=== PATIENT | female | born 1970 | race Caucasian/White ===

== ENCOUNTER 2017-06-18 05:38 | Inpatient (IN) | payer OTHER ==
[~2017-06-18] VITALS: Ht 165.1 cm; Wt 96.1 kg
[~2017-06-18 05:38] MED LIST: ADVAIR 250/501 DISK IH; ALBUTEROL SULF8.5 GM IH; AMBIEN10 M1 PO; AMBIEN10 MG PO; AMLODIPINE BESYL5 MG PO; CYMBALTA60 MG PO; DIAZEPAM10 MG PO; ENDOCET 5-3251 EACH PO; EPIPEN ADU0.3 MG/0.3 IM; HYDROMORPHONE HC2 MG PO; LEXAPRO10 MG PO; MOTRIN800 MG PO; MS CONTIN,ORAMO15 M1 PO; ONDANSETRON4 MG/2 ML PO; PARAFON FORTE500 MG PO; PERCOCET 5/31 TABLET PO; PERCOCET 7.5-31 EACH PO; PERCOCET 7.51 TABLET PO; PRILOSEC20 MG PO; PROAIR HFA8.5 GM IH; VENTOLIN HFA18 GM IH; VITAMIN B-122000 MC1 PO; VITAMIN B-12250 MCG PO; VITAMIN B-122500 MCG SL; VITAMIN D35000 UNIT PO; VITAMIN D5000 UNIT PO; WELLABUTRIN; ZANAFLEX4 MG PO; ZOFRAN4 MG PO
[2017-06-18 07:10] VITALS: BP 168/87
[2017-06-18 15:00] VITALS: BP 186/93
[2017-06-18 16:30] VITALS: BP 190/98
[2017-06-18 20:00] VITALS: BP 200/100
[2017-06-18 21:42] VITALS: BP 178/90
[2017-06-18 23:24] VITALS: BP 162/82
[2017-06-19 00:52] LABS: HEMATOCRIT 29.7 % (36.0-46.0); MCH 26.3 PG (29.0-34.0); MEAN PLAT.VOLUME 9.3 uM^3 (9.5-12.4); PLATELET COUNT 373 K/uL (156-360); RBC DIS.WIDTH-CV 15.3 % (11.8-14.6); RBC DIS.WIDTH-SD 46.7 % (39-53); WHITE BLOOD COUNT 17.6 K/uL (4.1-10.2)
[2017-06-19 01:02] LABS: MCV 84.9 FL (83-99)
[2017-06-19 01:19] LABS: TROP-I INTERPRETATION NEGATIVE; TROPONIN-I 0.03 ng/mL (0.0-0.30)
[2017-06-19 01:20] LABS: CHLORIDE 101 mEq/L (99-109); POTASSIUM 4.6 mEq/L (3.7-5.4); SODIUM 136 mEq/L (136-147)
[2017-06-19 01:21] LABS: MAGNESIUM 2.2 mg/dL (1.3-2.7)
[2017-06-19 01:22] LABS: GLUCOSE 139 mg/dL (70-99)
[2017-06-19 01:24] LABS: ANION GAP 13 MEQ/L (2-14)
[2017-06-19 01:26] LABS: GFR ESTIMATE (CALCULATED) 51 mL/min/
[2017-06-19 01:27] LABS: UREA NITROGEN (BUN) 10 mg/dL (9-23)
[2017-06-19 03:55] VITALS: BP 154/83
[2017-06-19 07:06] VITALS: BP 188/99
[2017-06-19 07:11] LABS: ANION GAP 12 MEQ/L (2-14); CHLORIDE 101 MEQ/L (99-109); GFR ESTIMATE (CALCULATED) > 59 mL/min/; GLUCOSE 127 mg/dL (70-99); POTASSIUM 4.4 MEQ/L (3.7-5.4); SAMPLE HEMOLYSIS CHECK 0; SAMPLE ICTERIC CHECK 0; SAMPLE LIPEMIA CHECK 0; SODIUM 137 MEQ/L (136-147); UREA NITROGEN (BUN) 9 mg/dL (9-23)
[2017-06-19 10:16] LABS: MAGNESIUM 1.9 mg/dl (1.3-2.7); POTASSIUM 5.1 MEQ/L (3.7-5.4)
[2017-06-19 10:53] VITALS: BP 149/79
[2017-06-19 11:14] LABS: ADD MIUA? YES; BILIRUBIN NEGATIVE; BLOOD SMALL; COLOR YELLOW ((YELLOW)); GLUCOSE (STRIP) 50; KETONES NEGATIVE; LEUKOCYTES NEGATIVE; NITRITE NEGATIVE; PROTEIN (STRIP) NEGATIVE; SPECIFIC GRAVITY 1.014 (1.000-1.030); UROBILINOGEN 0.2 MG/DL (0.2-1.0)
[2017-06-19 11:16] LABS: BACTERIA NONE SEEN /HPF; EPITHELIAL CELLS RARE /HPF; MUCUS TRACE /LPF; RED BLOOD CELLS 0-5 /HPF (0-5); UCUL ADDED? NO; WHITE BLOOD CELLS 0-5 /HPF (0-5)
[2017-06-19 15:20] VITALS: BP 137/73
[2017-06-19 19:18] VITALS: BP 134/67
[2017-06-19 23:15] VITALS: BP 143/71
[2017-06-20] VITALS (7 sets, daily range): BP systolic 129–179; BP diastolic 62–86
[2017-06-20 07:32] LABS: MCH 25.6 PG (29.0-34.0); MCV 85.3 FL (83-99); MEAN PLAT.VOLUME 9.6 uM^3 (9.5-12.4); PLATELET COUNT 352 K/uL (156-360); RBC DIS.WIDTH-CV 15.7 % (11.8-14.6); RBC DIS.WIDTH-SD 48.7 % (39-53); WHITE BLOOD COUNT 10.4 K/uL (4.1-10.2)
[2017-06-20 08:04] LABS: ANION GAP 11 MEQ/L (2-14); CHLORIDE 106 MEQ/L (99-109); GFR ESTIMATE (CALCULATED) > 59 mL/min/; GLUCOSE 105 mg/dL (70-99); POTASSIUM 4.3 MEQ/L (3.7-5.4); SAMPLE HEMOLYSIS CHECK 2; SAMPLE ICTERIC CHECK 0; SAMPLE LIPEMIA CHECK 0; SODIUM 142 MEQ/L (136-147); UREA NITROGEN (BUN) 7 mg/dL (9-23)
[2017-06-21 03:21] VITALS: BP 133/79
[2017-06-21 07:51] VITALS: BP 141/82
[2017-06-21] MEDS ORDERED: NORCO 5/3251 TABLET PO (08:24)
[2017-06-21 08:36] LABS: HEMATOCRIT 32.4 % (36.0-46.0); MCH 26.7 PG (29.0-34.0); MCHC 30.6 G/DL (30.0-36.0); MCV 87.3 FL (83-99); MEAN PLAT.VOLUME 9.6 uM^3 (9.5-12.4); PLATELET COUNT 401 K/uL (156-360); RBC DIS.WIDTH-CV 15.8 % (11.8-14.6); RBC DIS.WIDTH-SD 50.4 % (39-53); RED BLOOD COUNT 3.71 M/uL (3.80-5.20); WHITE BLOOD COUNT 12.1 K/uL (4.1-10.2)
[2017-06-21] MEDS ORDERED: LOPRESSOR25 MG PO (09:25)
[2017-06-21] MEDS ORDERED: AMLODIPINE BESYL5 MG PO (09:25)
== END 2017-06-21 10:31 | disposition home or self-care (01) | DRG 327 ==
LOC: SDC 05:38 → EDSTATUS 10:27 → SDC 10:28 → 2SOUTH 12:10 → 2EASTP 12:10 → ENRESERV 12:11 → 2SOUTH 14:41 → 2EASTP 15:06 → SDC 16:19 → 2EASTP 06-21 10:31
PROVIDERS: Hospitalist; Surgery
DX: K44.9 Diaphragmatic hernia without obstruction or gangrene (principal); K21.0 Gastro-esophageal reflux disease with esophagitis; I11.9 Hypertensive heart disease without heart failure; I16.9 Hypertensive crisis, unspecified; R00.0 Tachycardia, unspecified; I48.91 Unspecified atrial fibrillation; M79.7 Fibromyalgia; J45.909 Unspecified asthma, uncomplicated; F31.9 Bipolar disorder, unspecified; D64.9 Anemia, unspecified; F41.9 Anxiety disorder, unspecified; E66.9 Obesity, unspecified; Z91.041 Radiographic dye allergy status; Z68.35 Body mass index [BMI] 35.0-35.9, adult
CPT/HCPCS: 80048; 81003; 83735; 84132 91; 84484; 85027; 93005; 93306; 94640; 94760; 94799; 99202; J0330; J0360; J1100; J1170; J1644; J2250; J2405; J2765; J3010; S0028